=== PATIENT | male | born 1995 | race Caucasian/White ===

== ENCOUNTER 2022-10-27 16:17 | Emergency (ER) | payer BC, SELFPAY ==
[2022-10-27 16:21] VITALS: BP 112/68; PULSE 83; RESP 18; TEMP 37; O2SAT 96; BMI 30.8
--- NOTE | 2022-10-27 16:53 | ED.GENADULT ---
HPI - General Adult General Chief complaint: Dental/Oral/Mouth Injury/Pain Stated complaint: Deep cut to lip, fell skiing Time Seen by Provider: 10/27/22 16:30 History of Present Illness HPI narrative: This 27-year-old male comes in with an injury to his mouth and lips. He was skiing with poles and states that the pole got between the ground and his face as he fell. He chipped a couple teeth in the upper row of teeth and he has a laceration on the inner aspect of the lower lip and another laceration across the border of the upper lip on the right side. 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 His tetanus status is up-to-date. He did not have loss of consciousness and does not report any other injury. Related Data Allergies Allergy/AdvReac Type Severity Reaction Status Date / Time No Known Drug Allergies Allergy Verified 10/27/22 16:21 Review of Systems Status of ROS: Reports: 10 or more systems reviewed and unremarkable except as noted in History and below Narrative: Constitutional: No fevers, no weight gain or loss. Eyes: No discharge. No vision changes. HENT: No congestion, no sore throat, no ear pain. Dental and lip injuries as described above. Cardiovascular: No chest pain, no palpitations. Respiratory: No shortness of breath, no wheezes, no cough. Gastrointestinal: No abdominal pain, no vomiting, no diarrhea. Genitourinary: No dysuria, no hematuria. Musculoskeletal: Normal range of motion. Skin: No rashes, no pruritis. Neurological: No dizziness, weakness, sensory change, speech change. Endo/Heme/Allergies: No bruising or bleeding. No polydipsia. Pysch: no suicidality, no anxiety, no insomnia. All other systems reviewed and are negative. PFSH PFSH Social History Smoking Status: Never smoker Do you use any of these nicotine containing products: None Second hand tobacco smoke exposure: Yes How often do you have a drink containing alcohol: 2-4 times a month How many standard drinks containing alcohol do you have on a typical day: 1 or 2 How often do you have six or more drinks on one occasion: Never AUDIT-C Alcohol total score: 2 Non-prescribed substance use: denies use service: No Exam Narrative: Exam Narrative: Constitutional: Well-developed, well-nourished, no acute distress. HEENT: Small laceration in the inner aspect of the lower lip. The 2 upper teeth just right of midline are both fractured with the distal 3rd of the tooth removed. The right aspect of the upper lip has a 1 cm linear laceration that involves the vermilion border of the lip. Neck: Normal range of motion. Nontender. Supple. Heart: Regular. No murmurs. Normal rate. Intact distal pulses. Lungs: Clear to auscultation. No chest discomfort. No wheezes, rhonchi, or rales. Abdomen: Normal bowel sounds. Nontender. No rebound tenderness. Genitalia: Deferred. Back: No midline tenderness. Normal range of motion. Extremities: Normal range of motion. No injury. Skin: Intact. No rash. Warm. No erythema or pallor. Neurologic: No altered sensation. No weakness. Alert and oriented. Psychiatric: No suicidality. No anxiety or depression. No insomnia. Nursing notes and vitals signs are reviewed. Const: Vital Signs, click to edit/add: Vital Signs - 24 hr 10/27/22 16:21 Temperature 98.6 F Pulse Rate [Pulse Oximeter] 83 Respiratory Rate 18 Blood Pressure [Le ft Forearm] 112/68 Pulse Oximetry 96 Oxygen Delivery Me thod Room Air Course Vital Signs Vital signs: Initial Vital Signs Temperature 98.6 F 10/27/22 16:21 Temperature Source Temporal Artery Scan 10/27/22 16:21 Pulse Rate 83 10/27/22 16:21 Pulse Rhythm 10/27/22 16:21 Respiratory Rate 18 10/27/22 16:21 Blood Pressure 112/68 10/27/22 16:21 Blood Pressure Mean 82 10/27/22 16:21 Blood Pressure Position Supine 10/27/22 16:21 Pulse Oximetry 96 10/27/22 16:21 Oxygen Delivery Method 10/27/22 16:21 Vital Signs Temperature 98.6 F 10/27/22 16:21 Pulse Rate 83 10/27/22 16:21 Respiratory Rate 18 10/27/22 16:21 Blood Pressure 112/68 10/27/22 16:21 Pulse Oximetry 96 10/27/22 16:21 Oxygen Delivery Method 10/27/22 16:21 Temperature 98.6 F 10/27/22 16:21 Pulse Rate 83 10/27/22 16:21 Respiratory Rate 18 10/27/22 16:21 Blood Pressure 112/68 10/27/22 16:21 Pulse Oximetry 96 10/27/22 16:21 Oxygen Delivery Method 10/27/22 16:21 Medical Decision Making MDM Narrative Medical decision making narrative: This patient has significant dental pain as the fractured teeth are exposing some nerves. He is requesting a dental block. I did use Marcaine 0.25% to block the maxillary nerves above the dental injury. This happens to be where his lip laceration is also. He received excellent anesthesia with these injections. I did apply a little more medication into the wound itself. With use of magnification I did 1st cleanse the wound and examined it to its base. I then placed 3 sutures using 6.0 Ethilon suture in interrupted fashion. The wound edges were nicely approximated with special attention given to the lip line for proper alignment. Instructions were given to the patient regarding wound care and the need for suture removal in 5-7 days. The wound on the inner aspect of the lower lip is not in need of repair. The patient did receive a few tablets of [place] for additional pain relief when the dental block wears off. Hopefully the Marcaine will last a good long while for him. 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 Discharge Plan Discharge Clinical Impression: Laceration of lip, Fracture of tooth Patient Disposition: Home, Self-Care Condition: Improved Additional Instructions: Take medication as needed and directed. Follow up with dentist as soon as possible. Follow up with clinic or urgent care in 5-7 days for suture removal. Stand Alone Forms: [employer] Info Instructions
== END 2022-10-27 17:19 | disposition home or self-care (01) ==
LOC: ED 17:17
PROVIDERS: Emergency Provider Emergency Medicine Emergency Medical Services
DX: S01.511A Laceration without foreign body of lip, initial encounter (principal); S02.5XXA Fracture of tooth (traumatic), initial encounter for closed fracture; W19.XXXA Unspecified fall, initial encounter; Y93.23 Activity, snow (alpine) (downhill) skiing, snowboarding, sledding, tobogganing and snow tubing
CPT/HCPCS: 12011; 99283; 99284